=== PATIENT | male | born 1950 | race Caucasian/White ===

== ENCOUNTER 2018-06-30 08:58 | Emergency (ER) | payer OTHER, BC ==
--- NOTE | 2018-06-30 10:34 | RAD ---
EXAM: LEFT ANKLE THREE VIEWS: History: 67-year-old male with history of injury, dropped a metal plate on ankle yesterday. FINDINGS: Old healed fracture of the left distal tibial shaft. Anterior and medial soft tissue swelling of the ankle and hindfoot. Mild degenerative and osteoarthrosis change. No acute fracture or dislocation. Pr ominent vascular calcifications. IMPRESSION: Anterior medial soft tissue swelling. No acute fracture or dislocation. Old healed fracture distal ti bial diaphysis. Extensive vascular calcifications. Arthrosis changes ankle joint. POS: JAC
--- NOTE | 2018-06-30 10:35 | RAD ---
LEFT FOOT THREE VIEWS: History: Injury. Comparison: None. FINDINGS: There is moderate medial malleolar soft tissue swelling. Moderate dorsal edema of the midfoot. There is no acute displaced fracture or malalignment. Mild vascular calcifications. IMPRESSION: Soft tissue swelling without acute fracture or malalignment. POS: JAC
== END 2018-06-30 10:50 | disposition home or self-care (01) ==
LOC: MADERS 08:58
DX: S90.32XA Contusion of left foot, initial encounter (principal); I10 Essential (primary) hypertension; Z79.899 Other long term (current) drug therapy; X58.XXXA Exposure to other specified factors, initial encounter

== ENCOUNTER 2020-08-10 09:46 | Emergency (ER) | payer MEDICARE ==
--- NOTE | 2020-08-10 12:17 | RAD ---
LEFT FOOT 3 VIEWS: Date: 08/10/2020 HISTORY: Foot injury. FINDINGS: There are arthritic changes of the first metatarsophalangeal joint. Vascular calcifications are prese nt. There are some mild arthritic changes of the ankle joint. Calcaneal spur at the plantar fascia in sertion is noted. IMPRESSION: No acute injury. POS: OFF
== END 2020-08-10 10:50 | disposition home or self-care (01) ==
LOC: MADERS 09:46
DX: S90.32XA Contusion of left foot, initial encounter (principal); E78.5 Hyperlipidemia, unspecified; E78.00 Pure hypercholesterolemia, unspecified; I10 Essential (primary) hypertension; F17.220 Nicotine dependence, chewing tobacco, uncomplicated; W20.8XXA Other cause of strike by thrown, projected or falling object, initial encounter